=== PATIENT | male | born 1980 | race Caucasian/White ===

== ENCOUNTER 2023-10-10 08:08 | Outpatient (CLI) | payer OTHER | END 2023-10-10 08:09 | disposition home or self-care (01) | LOC: CSHMRI 08:08 | PROVIDERS: ATTEND Surgery | DX: M51.16 Intervertebral disc disorders with radiculopathy, lumbar region (principal); M51.36 Other intervertebral disc degeneration, lumbar region; M48.02 Spinal stenosis, cervical region; M43.12 Spondylolisthesis, cervical region; M47.812 Spondylosis without myelopathy or radiculopathy, cervical region; M25.48 Effusion, other site | CPT/HCPCS: 72050; 72110; 72141; 72148 ==